=== PATIENT | male | born 1955 | race Caucasian/White ===

== ENCOUNTER 2019-06-21 08:56 | Outpatient (CLI) | payer MEDICARE ==
--- NOTE | 2019-06-21 12:55 | CT ---
CT CHEST HIGH RESOLUTION PROTOCOL: INDICATION: Pulmonary fibrosis with shortness of breath. COMPARISON: None. FINDINGS: There are areas of peripheral interstitial thickening within the interlobular and intralobular distri bution with upper lobe predominance. There is bronchiectasis seen peripherally throughout both lungs but again most prominent within the upper lobes. There are areas of peripheral groundglass airs pace opacity seen within the subpleural distribution, again in the upper lobe predominant pattern. No leslie pleural effusion is noted. No definite enlarged lymph nodes are noted. Mild cardiomegaly and mitral annular calcifications. There are coronary artery and thoracic aortic calcifications visualized upper abdomen shows no definite acute abnormality. There is a ununited fracture involving the right anterolateral eighth rib. There are healed fractures involving right third through seventh ribs. IMPRESSION: Upper lobe predominant interstitial lung disease with areas of honeycombing, peripheral interstitial thickening, bronchiectasis and peripheral groundglass opacities. Differential considerations include entities such as chronic hypersensitivity pneumonitis, drug toxicity, histoplasmosis or possi thang pneumoconiosis which is felt to be less likely. 2. Ununited right anterolateral eighth rib fracture with multiple healed remote right-sided rib fract ures. 3. Mild cardiomegaly. Transcribed Date/Time: 06/21/2019 1:21 PM
--- NOTE | 2019-06-24 08:20 | PFT ---
PATIENT HISTORY: HEIGHT: 63 in WEIGHT: 216 SMOKER: never HOW LONG: PACKS PER DAY: PRODUCTIVE COUGH: LUNG DISEASE: PHYSICIAN INTERPRETATION PFT data: 06/21/2019 FEV1 2.0 L 77% predicted, FVC 2.2 L 64% predicted. There is no improvement after bronchodilatation. The Total Lung Capacity is 4.52 L, 79% predicted. DLCO 10 which is 40% predicted, and does not fully correct for volume. The flow volume loop appears restricted. IMPRESSION: This is a mild Restrictive Pulmonary Impairment. Gas exchange is reduced. Line Worker: [employer] Mechanic: GOYO [employer]INI[employer]
== END 2019-06-21 08:57 | disposition home or self-care (01) ==
LOC: CP 08:56
PROVIDERS: ATTEND Internal Medicine Critical Care Medicine
DX: J84.10 Pulmonary fibrosis, unspecified (principal); R91.8 Other nonspecific abnormal finding of lung field; J47.9 Bronchiectasis, uncomplicated; J98.4 Other disorders of lung; S22.31XA Fracture of one rib, right side, initial encounter for closed fracture; I51.7 Cardiomegaly
CPT/HCPCS: 71250; 94060; 94727; 94729